=== PATIENT | male | born 2000 | race Native Hawaiian/Other Pacific Islander ===

== ENCOUNTER 2021-03-29 07:41 | Emergency (ER) | payer OTHER ==
[~2021-03-29] VITALS: Ht 188 cm; Wt 72.6 kg
[2021-03-29 09:03] LABS: PLATELET COUNT 146 K/uL (142-355)
[2021-03-29 09:18] LABS: POTASSIUM 3.7 mmol/L (3.6-5.2)
[2021-03-29 10:54] VITALS: BP 140/82; TEMP 99.1
== END 2021-03-29 10:54 | disposition home or self-care (01) ==
LOC: ED 07:41
PROVIDERS: Family Medicine
DX: U07.1 COVID-19 (principal); R11.2 Nausea with vomiting, unspecified
CPT/HCPCS: 80053; 85027; 96372; 99283; J2405